=== PATIENT | female | born 1995 | race Caucasian/White ===

== ENCOUNTER 2022-08-09 17:56 | Emergency (ER) | payer OTHER ==
[~2022-08-09] VITALS: Ht 175.3 cm; Wt 75.0 kg
[2022-08-09 18:39] LABS: BASO % 0.3 % (0.0-1.0); EOS % 0.2 % (0.0-3.0); HEMATOCRIT 34.4 % (36.0-47.0); HEMOGLOBIN 11.7 g/dl (12.0-15.5); LYMPH # 2.1 10^3/uL (1.5-5.0); LYMPH % 19.9 % (24.0-44.0); MEAN CORPUSCULAR HEMOGLOBIN 30.3 pg (27.0-33.0); MEAN CORPUSCULAR VOLUME 89.1 fl (80.0-96.0); MONO # 0.6 10^3/uL (0.0-0.8); MONO % 5.8 % (2.0-8.0); NEUTROPHILS % 73.6 % (36.0-66.0); PLATELET COUNT, AUTOMATED 317 10^3/uL (150-450); RED BLOOD COUNT 3.86 10^6/uL (4.00-5.40); WHITE BLOOD COUNT 10.8 10^3/uL (4.0-10.0)
[2022-08-09 19:18] LABS: ALBUMIN 3.3 GM/DL (3.2-5.2); ALT/SGPT 16 U/L (12-78); BILIRUBIN,DIRECT 0.1 MG/DL (0.0-0.2); BILIRUBIN,TOTAL 0.3 MG/DL (0.2-1.0); BLOOD UREA NITROGEN 6 MG/DL (7-18); CALCIUM LEVEL 9.5 MG/DL (8.5-10.1); CARBON DIOXIDE LEVEL 26 MEQ/L (21-32); CHLORIDE LEVEL 106 MEQ/L (98-107); CREATININE FOR GFR 0.56 MG/DL (0.55-1.30); GLOMERULAR FILTRATION RATE > 60.0 (>60); GLUCOSE, FASTING 98 MG/DL (70-100); LIPASE 117 U/L (73-393); MAGNESIUM LEVEL 1.9 MG/DL (1.8-2.4); POTASSIUM SERUM 3.6 MEQ/L (3.5-5.1); SODIUM LEVEL 137 MEQ/L (136-145); TOTAL PROTEIN 7.3 GM/DL (6.4-8.2)
[2022-08-09] MEDS ORDERED: METOCLOPRAMIDE INJ 10MG/2ML VIAL (J2765 PER 1) IV ONE (19:50)
[2022-08-09] MEDS ORDERED: ACETAMINOPHEN 500 MG TAB PO ONE (19:50)
[2022-08-09] MEDS ORDERED: NS 1,000 ML IV ONE (19:50)
[2022-08-09] MEDS ORDERED: methylPREDNISolone 125MG 2ML VIAL IV ONE (21:30)
[2022-08-09 21:37] VITALS: BP 118/59
== END 2022-08-09 21:44 | disposition home or self-care (01) ==
LOC: M ED 17:56
DX: O99.891 Other specified diseases and conditions complicating pregnancy (principal); R51.9 Headache, unspecified; Z3A.20 20 weeks gestation of pregnancy
CPT/HCPCS: 80048; 80076; 83690; 83735; 85025; 87486; 87581; 87633; 87798; 96374; 96375; 99284; J2765; J2930

== ENCOUNTER 2022-12-17 02:26 | Inpatient (IN) | payer OTHER ==
[2022-12-17] VITALS (12 sets, daily range): BP systolic 107–138; BP diastolic 56–84
[~2022-12-17] VITALS: Ht 175.3 cm; Wt 81.6 kg
[2022-12-17] MEDS ORDERED: LR 1,000 ML IV ONE (02:35)
[2022-12-17 03:41] LABS: HEMATOCRIT 34.9 % (36.0-47.0); HEMOGLOBIN 11.5 g/dl (12.0-15.5); MEAN CORPUSCULAR HEMOGLOBIN 27.8 pg (27.0-33.0); MEAN CORPUSCULAR VOLUME 84.3 fl (80.0-96.0); PLATELET COUNT, AUTOMATED 305 10^3/uL (150-450); RED BLOOD COUNT 4.14 10^6/uL (4.00-5.40); WHITE BLOOD COUNT 10.7 10^3/uL (4.0-10.0)
[2022-12-17] MEDS ORDERED: PROMETHAZINE 25MG/ML 1ML VIAL IV ONE (04:50)
[2022-12-17] MEDS ORDERED: BUTORPHANOL 2 MG/ML 1ML VIAL IV ONE (04:50)
[2022-12-17] MEDS: LR 1,000 ML IV SCH ×6 (05:09→14:10)
[2022-12-17] MEDS ORDERED: LACTATED RINGER'S 1000 ML IV STA (06:06)
[2022-12-17] MEDS ORDERED: TRANEXAMIC ACID INJection 1,000 MG in NS 100 ML IV PRN (06:10)
[2022-12-17] MEDS ORDERED: METHYLERGONOVINE MALEATE 0.2MG/ML 1ML VIAL IM PRN (06:10)
[2022-12-17] MEDS ORDERED: OXYTOCIN DRIP 30 UNITS in IV 1 EA IV SCH ×2 (06:10→11:00)
[2022-12-17] MEDS ORDERED: OXYTOCIN INJ 10UNITS/ML 1ML VIAL IV PRN (06:10)
[2022-12-17] MEDS ORDERED: LIDOCAINE 1% MDV 20ML VIAL INFIL PRN (06:10)
[2022-12-17] MEDS ORDERED: CARBOPROST TROMETHAMINE 250 MCG/ML AMP IM PRN (06:10)
[2022-12-17] MEDS ORDERED: OXYTOCIN INJ 10UNITS/ML 1ML VIAL IM PRN (06:10)
[2022-12-17] MEDS ORDERED: OXYTOCIN DRIP 30 UNITS in IV 1 EA IV PRN ×6 (06:10)
[2022-12-17] MEDS ORDERED: COLA100C5 PO (08:49)
[2022-12-17] MEDS ORDERED: MIRA3350 PO (08:49)
[2022-12-17] MEDS ORDERED: PRENTAB9 PO (08:49)
[2022-12-17] MEDS ORDERED: HOME MED LIST COMPLETE! XX SCH (08:50)
[2022-12-17 11:00] LABS: CORD GAS ABE A -7.4; CORD GAS ABE V -5.7; CORD GAS HCO3 A 18.7 MEQ/L; CORD GAS HCO3 V 18.5 MEQ/L; CORD GAS O2 SAT A 49.7 %; CORD GAS O2 SAT V 71.8 %; CORD GAS PCO2 V 33.4 mmHg; CORD GAS PH A 7.287 UNITS; CORD GAS PH V 7.361 UNITS; CORD GAS PO2 A 21.1 mmHg; CORD GAS PO2 V 28.9 mmHg; CORD GAS SBC A 17.4 MEQ/L; CORD GAS SBC V 19.2 MEQ/L; CORD GAS TCO2 A 19.9 MEQ/L; CORD GAS TCO2 V 19.5 MEQ/L
[2022-12-17] MEDS ORDERED: DOCUSATE SODIUM 100MG CAPSULE PO PRN (11:00)
[2022-12-17] MEDS ORDERED: IBUPROFEN 600MG TAB PO PRN (11:00)
[2022-12-17] MEDS ORDERED: ACETAMINOPHEN 500 MG TAB PO PRN (11:00)
[2022-12-17] MEDS ORDERED: ACETAMINOPHEN TAB 650MG DOSE (2X325MG) PO PRN (11:00)
[2022-12-17] MEDS ORDERED: IBUPROFEN 800 MG TAB PO PRN (11:00)
[2022-12-17] MEDS ORDERED: METHYLERGONOVINE MALEATE 0.2 MG TAB PO PRN (11:00)
[2022-12-17] MEDS ORDERED: DIBUCAINE 1% OINTMENT 30GM TOP PRN (11:00)
[2022-12-17] MEDS: PRENATAL VITAMINS CHEWABLE TABLET PO SCH (16:16)
[2022-12-18 06:00] VITALS: BP 116/60
[2022-12-18] MEDS: PRENATAL VITAMINS CHEWABLE TABLET PO SCH (08:55)
[2022-12-18 18:00] VITALS: BP 153/82
[2022-12-19 06:00] VITALS: BP 113/63
[2022-12-19] MEDS: PRENATAL VITAMINS CHEWABLE TABLET PO SCH (08:07)
[2022-12-19] MEDS ORDERED: IBUP-1022 PO (10:24)
[2022-12-19] MEDS ORDERED: ACET-683 PO (10:24)
== END 2022-12-19 11:32 | disposition home or self-care (01) | DRG 807 ==
LOC: M LDO 02:26 → M LDI 02:55 → M OBS 14:15
PROVIDERS: ADMIT Obstetrics & Gynecology; ATTEND Obstetrics & Gynecology
PROC: 10E0XZZ Delivery of Products of Conception, External Approach (ICD-10-PCS; principal; 2022-12-18)
PROC: 0HQ9XZZ Repair Perineum Skin, External Approach (ICD-10-PCS; 2022-12-18)
DX: O32.6XX0 Maternal care for compound presentation, not applicable or unspecified (principal); Z37.0 Single live birth; Z3A.38 38 weeks gestation of pregnancy; O69.82X0 Labor and delivery complicated by other cord entanglement, without compression, not applicable or unspecified; O69.89X0 Labor and delivery complicated by other cord complications, not applicable or unspecified; O70.0 First degree perineal laceration during delivery